=== PATIENT | male | born 1975 | race Two or more races ===

== ENCOUNTER 2022-04-13 03:36 | Emergency (ER) | payer OTHER ==
[~2022-04-13] VITALS: Ht 170.2 cm; Wt 68.0 kg
--- NOTE | 2022-04-13 04:00 | NUR ---
TO ER BED 12. [id number] FROM [facility] C/O LOWER BACK PAIN. PT STATES FROM "WALKING ALL DAY". DENIES ANY CHEST PAIN. NOT IN RESPIRATORY DISTRESS. CONNECTED TO MONITOR. AWAITING MD SALCEDO
[2022-04-13] MEDS ORDERED: LORAZEPAM 1 MG TABLET ONE (04:19)
[2022-04-13] MEDS ORDERED: oxyCODONE/APAP (5/325 MG) 1 UDTAB TABLET ONE (04:19)
[2022-04-13] MEDS ORDERED: oxyCODONE/APAP (5/325 MG) 1 UDTAB TABLET PO ONE (04:30)
[2022-04-13] MEDS ORDERED: LORAZEPAM 1 MG TABLET PO ONE (04:30)
[2022-04-13] MEDS ORDERED: ONDANSETRON 4 MG TAB.RAPDIS SL ONE (04:30)
[2022-04-13] MEDS ORDERED: CYCL10TA9 PO (07:38)
[2022-04-13] MEDS ORDERED: OXYC-128 PO (07:38)
[2022-04-13 07:51] VITALS: BP 115/65
--- NOTE | 2022-04-13 07:51 | NUR ---
Patient discharged to home in stable condition. Written and verbal after care instructions given. Patient verbalizes understanding of instruction.
== END 2022-04-13 07:52 | disposition home or self-care (01) ==
LOC: ER 03:47
DX: M54.50 Low back pain, unspecified (principal); M62.830 Muscle spasm of back